=== PATIENT | male | born 1995 | race Asian ===

== ENCOUNTER 2018-06-09 10:46 | Emergency (ER) | payer OTHER ==
[2018-06-09] MEDS ORDERED: HYDROcod/ACETAM 5/325 MG TABLET PO STA (12:23)
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
[2018-06-09 14:09] VITALS: BP 140/86
== END 2018-06-09 14:11 | disposition home or self-care (01) ==
LOC: ED 10:46
DX: M54.2 Cervicalgia (principal); S39.92XA Unspecified injury of lower back, initial encounter; V43.52XA Car driver injured in collision with other type car in traffic accident, initial encounter; Y92.411 Interstate highway as the place of occurrence of the external cause; R03.0 Elevated blood-pressure reading, without diagnosis of hypertension
CPT/HCPCS: 72040; 72070; 72100; 99283; A9270

== ENCOUNTER 2019-08-13 13:46 | Emergency (ER) | payer OTHER ==
[2019-08-13 13:52] VITALS: BP 149/93
[2019-08-13] MEDS ORDERED: HYDROcod/ACETAM 5/325 MG TABLET PO STA (14:04)
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
== END 2019-08-13 14:17 | disposition home or self-care (01) ==
LOC: ED 13:46
DX: M54.2 Cervicalgia (principal); G89.21 Chronic pain due to trauma
CPT/HCPCS: 99282; 99284; A9270

== ENCOUNTER 2019-09-11 18:52 | Emergency (ER) | payer OTHER ==
[2019-09-11 19:03] VITALS: BP 145/98
[2019-09-11] MEDS ORDERED: oxyCODONE/ACET 5/325 Prepack 4 PO STA (19:11)
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
== END 2019-09-11 19:16 | disposition home or self-care (01) ==
LOC: ED 18:52
DX: M54.5 Low back pain (principal); G89.29 Other chronic pain; R03.0 Elevated blood-pressure reading, without diagnosis of hypertension
CPT/HCPCS: 99282; 99284

== ENCOUNTER 2019-09-12 20:43 | Emergency (ER) | payer OTHER ==
--- NOTE | 2019-09-12 20:55 | ED Physician Documentation ---
History of Present Illness - Stated complaint Stated Complaint: BK/NK PX - Additonal information Additional information: Patient is a 24-year-old male who has a one-year history of chronic low back pain. He states this is gotten worse over the past month. This is his third ER visit in this past month for this. He was prescribed [place] [address] approximate 1 month ago. He was here yesterday and given #4 Percocet for this. He states his pain is ongoing and he is having difficulty with management. He takes ibuprofen, Robaxin, and Tylenol for this at home. He states he sometimes takes Naprosyn at night. He is gone to physical therapy in the past, has had osteopathic manipulation, and acupuncture additionally. He states his physical therapy is ongoing. He has not had OMT in some time. Review of Systems Constitutional: denies: Fever, Myalgias Cardiac: denies: Chest pain / pressure Respiratory: denies: Dyspnea, Cough Skin: denies: Rash Musculoskeletal: reports: Back pain. denies: Neck pain, Extremity pain, Joint pain, Extremity swelling Neurologic: denies: Generalized weakness, Numbness PD PAST MEDICAL HISTORY - Past Medical History Cardiovascular: None Respiratory: None Neuro: None Endocrine/Autoimmune: None GI: None : None HEENT: None Psych: None Musculoskeletal: None Derm: None - Past Surgical History Past Surgical History: No - Present Medications Home Medications: Ambulatory Orders Medication Instructions Recorded Confirmed Hydrocodone/Acetaminophen 1 - 2 each PO Q6H PRN #14 tablet 06/09/18 [Hydrocodon-Acetaminophen 5-325] diphenhydrAMINE [Benadryl] 06/09/18 06/09/18 Hydrocodone/Acetaminophen 1 - 2 each PO Q6H PRN #12 tablet 08/13/19 [Hydrocodon-Acetaminophen 5-325] traMADol [Ultram] 50 mg PO Q4-6H #4 tablet 09/12/19 - Allergies Allergies/Adverse Reactions: Allergies Allergy/AdvReac Type Severity Reaction Status Date / Time No Known Drug Allergies Allergy Verified 09/12/19 20:57 - Social History Does the pt smoke?: No Smoking Status: Never smoker Does the pt drink ETOH?: Yes Does the pt have substance abuse?: No - Immunizations Immunizations are current?: Yes - POLST Patient has POLST: No PD ED PE NORMAL - Vitals Vital signs reviewed: Yes - General General: Alert and oriented X 3, No acute distress, Well developed/nourished - HEENT HEENT: Atraumatic - Back Back: No CVA TTP, No spinal TTP, Other (No midline tenderness or vertebral step- off) - Derm Derm: Normal color - Extremities Extremities: No deformity, Normal ROM s pain, No edema - Neuro Neuro: Alert and oriented X 3, No motor deficit, Other (Strength is 4 out of 4 in his lower extremities. He is able to self ambulate without assistance.) Results - Vitals Vitals: Vital Signs - 24 hr 09/12/19 20:53 Temperature 36.5 C Heart Rate 83 Respiratory 19 Rate Blood Pressure 139/90 H O2 Saturation 97 Oxygen O2 Source Room air PD MEDICAL DECISION MAKING - ED course Complexity details: reviewed old records, d/w patient, other (Reviewed prior chart notes. Patient's history, exam, and complaints are consistent with chronic pain. I do not believe he has an emergent condition at this time. He is self ambulating, he is afebrile, and he has full range of motion of his back and extremities. Discuss opiate refills in the emergency room. I do not believe this is in his best interest today. He is given a dose of tramadol here. I will prescribe 4 tablets of tramadol that he can use additionally. He is asked to contact his primary care provider to discuss chronic pain management. Return to the emergency room as needed for any emergent changes are concerns.) Departure - Departure Disposition: 01 Home, Self Care Clinical Impression: Chronic back pain Instructions: ED Pain Control Ch, ED Low Back Pain Injury Prescriptions: traMADol [Ultram] 50 mg PO Q4-6H #4 tablet Comments: Continue your current medications. A prescription of tramadol has also been provided. Please contact your primary care provider to schedule a follow-up dejuan ointment. Discuss your ongoing pain management and therapies. Utilize the ER as needed for any emergent changes or concerns.
[2019-09-12 20:58] VITALS: BP 139/90
[2019-09-12] MEDS ORDERED: traMADol 50 MG TABLET PO STA (21:06)
== END 2019-09-12 21:20 | disposition home or self-care (01) ==
LOC: ED 20:43
DX: M54.9 Dorsalgia, unspecified (principal); G89.29 Other chronic pain
CPT/HCPCS: 99282; 99284; A9270

== ENCOUNTER 2019-11-11 15:36 | Emergency (ER) | payer OTHER ==
[2019-11-11 15:42] VITALS: BP 126/83
[2019-11-11] MEDS ORDERED: MELOXICAM 7.5 MG TABLET PO STA ×2 (15:56→16:06)
--- NOTE | 2019-11-11 16:00 | ED Physician Documentation ---
History of Present Illness - Stated complaint Stated Complaint: NECK PX - Chief complaint Chief Complaint: Back Pain - History obtained from History obtained from: Patient - History of Present Illness Timing: Yesterday Pain level max: 7 Pain level now: 4 - Additonal information Additional information: 24-year-old male presents to the emergency department with neck pain. Does not recall any injury. He has been having ongoing issues with muscle spasms in his neck and back for several years. Worse with movement and better with rest. Took Tylenol without relief. He is currently active duty [employer]. Review of Systems Constitutional: denies: Fever, Chills Respiratory: denies: Cough GI: denies: Nausea, Vomiting Musculoskeletal: denies: Back pain Neurologic: denies: Headache PD PAST MEDICAL HISTORY - Past Medical History Cardiovascular: None Respiratory: None Neuro: None Endocrine/Autoimmune: None GI: None : None HEENT: None Psych: None Musculoskeletal: None Derm: None - Past Surgical History Past Surgical History: No - Present Medications Home Medications: Ambulatory Orders Medication Instructions Recorded Confirmed Acetaminophen 500 mg PO QID PRN 11/11/19 11/11/19 Escitalopram Oxalate [Lexapro] 20 mg PO DAILY 11/11/19 11/11/19 Ibuprofen [Motrin] 600 mg PO Q6H PRN 11/11/19 11/11/19 Meloxicam [Mobic] 15 mg PO DAILY PRN #20 tablet 11/11/19 Metaxalone [Skelaxin] 800 mg PO Q8H PRN #20 tablet 11/11/19 Propranolol [Inderal] 10 mg PO DAILY PRN 11/11/19 11/11/19 Zolpidem [Ambien] 5 mg PO HS 11/11/19 11/11/19 - Allergies Allergies/Adverse Reactions: Allergies Allergy/AdvReac Type Severity Reaction Status Date / Time No Known Drug Allergies Allergy Verified 09/12/19 20:57 - Social History Does the pt smoke?: No Smoking Status: Never smoker Does the pt drink ETOH?: Yes Does the pt have substance abuse?: No - Immunizations Immunizations are current?: Yes - POLST Patient has POLST: No PD ED PE NORMAL - Vitals Vital signs reviewed: Yes - General General: Alert and oriented X 3, No acute distress - HEENT HEENT: Moist mucous membranes, Other (Mild paraspinal spasm paracervical, right greater than left. No midline tenderness to palpation. 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 We will trial him on Skelaxin and meloxicam. Patient is well-appearing, nontoxic. Afebrile. No meningitis. No evidence of trauma. Patient counseled regarding signs and symptoms for which I believe and urgent re-evaluation would be necessary. Patient with good understanding of and agreement to plan and is comfortable g oing home at this time This document was made in part using voice recognition software. While efforts are made to proofread this document, sound alike and grammatical errors may occur. Departure - Departure Disposition: 01 Home, Self Care Clinical Impression: Muscle spasm Chronic back pain Qualifiers: Back pain location: back pain in unspecified location Back pain laterality: right Qualified Code(s): M54.9 - Dorsalgia, unspecified Condition: Good Instructions: ED Spasm Neck No Injury Follow-Up: [facility] [Provider Group] Prescriptions: Meloxicam [Mobic] 15 mg PO DAILY PRN #20 tablet PRN Reason: pain Metaxalone [Skelaxin] 800 mg PO Q8H PRN #20 tablet PRN Reason: Spasms Comments: Return if you worsen. Follow up with your doctor for further care. Do not drive or operate heavy machinery while taking the skelaxin.
== END 2019-11-11 16:13 | disposition home or self-care (01) ==
LOC: ED 15:36
DX: M62.830 Muscle spasm of back (principal); M62.838 Other muscle spasm; M54.9 Dorsalgia, unspecified; G89.29 Other chronic pain
CPT/HCPCS: 99282; 99284; A9270